=== PATIENT | male | born 1990 | race Caucasian/White ===

== ENCOUNTER 2020-01-24 16:59 | Emergency (ER) | payer OTHER, SELFPAY ==
[2020-01-24] VITALS (15 sets, daily range): BP systolic 113–137; BP diastolic 60–79; PULSE 47–61; RESP 10–20; TEMP 36.6; O2SAT 99–100
[2020-01-24] MEDS: fentaNYL 100 MCG/2 ML VIAL ×3 (17:12→19:07)
--- NOTE | 2020-01-24 17:30 | DI.RAD_ITS ---
EXAM: XR PORTABLE CHEST AP POST LINE CLINICAL HISTORY: right lateral chest tube placed TECHNIQUE: COMPARISON: No exams were available for comparison FINDINGS: Portable AP supine chest 1740 hours. Right thoracotomy tube noted in position. Severe spinal midtho racic fracture noted as seen on CT, please note findings at CT. Small residual right pneumothorax se en by plain film was significantly larger on CT. Widening of posterior mediastinum noted associated with the thoracic spine injury. IMPRESSION: RADIATION DOSE DELIVERED: Total DLP
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
[2020-01-24 17:48] LABS: Abs Immature Grans 0.09 10^3/uL (0.0-0.06); Absolute Basophil Count 0.04 10^3/uL (0.0-0.2); Absolute Eosinophil Count 0.07 10^3/uL (0.0-0.7); Absolute Lymphocyte Count 3.11 10^3/uL (1.2-3.4); Absolute Monocyte Count 0.51 10^3/uL (0.1-0.8); Absolute Neutrophil Count 7.29 10^3/uL (1.2-6.7); Basophils % 0.4; Eosinophils % 0.6; HCT 43.7 % (40.0-50.0); HGB 14.7 g/dL (13.5-17.5); Immature Grans % 0.8; MCH 30.4 pg (27.0-33.0); MCHC 33.6 % (32.0-36.0); MCV 90.5 fL (80-95); MPV 9.6 fL (8.0-11.0); Monocytes % 4.6; Neutrophils % 65.6; Nucleated RBC 0 %; Platelet Count 213 10^3/uL (130-400); RBC 4.83 10^6/uL (4.36-5.78); RDW 12.2 % (11.8-14.1); RDW-SD 40.5 fL; WBC 11.12 10^3/uL (4.4-10.8)
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
[2020-01-24] MEDS: MORPHine 10 MG/ML VIAL (17:54)
[2020-01-24 17:59] LABS: INR 1.1 (0.9-1.1); PTT Activated 23.6 sec (21.0-31.4); Prothrombin Time 10.6 sec (9.3-11.0)
[2020-01-24 18:03] LABS: ALT 45 U/L (16-63); AST 38 U/L (15-37); Alkaline Phosphatase 52 U/L (46-116); Anion Gap 11.2 mmol/L (3-11); BUN 17 mg/dL (7-18); Bilirubin, Total 0.3 mg/dL (0.2-1.0); CO2 25.8 mmol/L (21.0-32.0); CREATININE 1.09 mg/dL (0.70-1.30); Calcium 8.8 mg/dL (8.5-10.1); Chloride 100 mmol/L (98-107); Glucose 110 mg/dL (74-106); Lipase 47 U/L (73-393); Potassium 3.4 mmol/L (3.5-5.1); Sodium 137 mmol/L (136-145); Total Protein 6.9 g/dL (6.4-8.2)
--- NOTE | 2020-01-24 18:12 | DI.CT_ITS ---
EXAM: CT CHEST/ABD/PEL W CLINICAL HISTORY: trauma TECHNIQUE: COMPARISON: CT CT THORACIC LUMBAR SPINE WO from 01/24/2020 FINDINGS: CT examination of the chest, abdomen, and pelvis was performed with bolus infusion of 100 cc Omnipaqu e 350. There is a right thoracotomy tube in position, moderate-sized persistent right pneumothorax/hemothora x noted. No left pneumothorax. Possible posterior right pulmonary contusion. Small left pleural effus ion. Apparent foreign body in upper esophagus, 1 millimeter x 2 cm in diameter. There is a paraspinous hem atoma extending from T2 through T12. No gross vascular lesion of the chest. There is a severe burst fracture of T8. There is marked anterior over riding of T7 with respect to T8 and posterior displacement of T8 vertebral body with severe narrowing of the spinal canal at this le andrew. There are posterior element fractures of T 7 and T9 as well as T8. Transverse process fractures noted involving T 6 and T9. Right 6th rib fracture and left 8th and 9th rib fracture noted. Posterior spinous process fractures noted of T5-T6 T7 and T8. No evidence of hepatic splenic or pancreatic injury. No evidence of renal or adrenal injury or urinar y tract obstruction. No evidence of bowel injury. No vascular injury identified in the abdomen. Cheryl l diameter of the aorta. No significant abdominal wall hernia or hematoma. No fracture seen involving the lumbar spine pelvis or hips. IMPRESSION: Severe thoracic spine injury with markedly displaced burst fracture of T8 and marked deformity of the spinal canal as described above. Right pneumothorax/hemothorax with thoracotomy tube in position. RADIATION DOSE DELIVERED: Total DLP
[2020-01-24] MEDS: Omnipaque 350 MG/ML 100 ML BTL IJ (18:13)
[2020-01-24] MEDS: Normal Saline Flush 10 ML SYR IVP (18:14)
[2020-01-24] MEDS: Normal Saline - Diluent 50 ML VIAL IV (18:14)
[2020-01-24 18:15] LABS: ETHANOL BLOOD < 3.0 mg/dL (<3)
[2020-01-24] MEDS: MORPHine 10 MG/ML VIAL 4 MG IVP (18:25)
--- NOTE | 2020-01-24 18:28 | DI.VRAD_ITS ---
Addendum created by Kita Mendoza MD on 01/24/2020 6:30:26 PM EDT: T8 compression fracture noted. See separate CT report. Trace residual apparent anterior pneumothorax noted on the right best appreciated on CT assessment. Initial report created on 01/24/2020 6:28:07 PM EDT: PROCEDURE INFORMATION: Exam: XR Chest, 1 View Exam date and time: 01/24/2020 5:39 PM Age: 29 years old Clinical indication: Device placement; Chest tube TECHNIQUE: Imaging protocol: XR of the chest Views: 1 view. Other technique: Portable exam. COMPARISON: No relevant prior studies available. FINDINGS: Tubes, catheters and devices: Right-sided chest tube in place. Lungs: The lung apices are not completely included on this exam. As shown there is no evidence for pneumothorax. No focal infiltrates. Pleural space: See Lungs finding. Heart/Mediastinum: Unremarkable. No cardiomegaly. Bones/joints: There appear to be 1 or 2 right-sided rib fractures. IMPRESSION: No definite pneumothorax status post chest tube placement. Dictated and Authenticated by: Kita Mendoza MD. Ordering:BRYAN Gtz MD
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
[2020-01-24 18:38] LABS: Bilirubin Negative (Negative); Blood Small (Negative); Clarity Clear (Clear); Glucose Negative (Negative); Ketones Negative (Negative); Leukocyte Esterase Negative (Negative); Nitrite Negative (Negative); Urobilinogen 0.2 EU/dL (Up TO 0.2)
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
--- NOTE | 2020-01-24 18:46 | DI.VRAD_ITS ---
Addendum created by Kita Mendoza MD on 01/24/2020 7:01:11 PM EDT: I discussed case findings with Dr. Haro 01/24/2020 7:00 PM EST. Initial report created on 01/24/2020 6:46:26 PM EDT: PROCEDURE INFORMATION: Exam: CT Chest With Contrast Exam date and time: 01/24/2020 6:00 PM Age: 29 years old Clinical indication: Other: Trauma TECHNIQUE: Imaging protocol: Computed tomography of the chest with intravenous contrast. Radiation optimization: All CT scans at this facility use at least one of these dose optimization techniques: automated exposure control; mA and/or kV adjustment per patient size (includes targeted exams where dose is matched to clinical indication); or iterative reconstruction. Contrast material: OMNIPAQUE 350; Contrast route: INTRAVENOUS (IV); COMPARISON: No relevant prior studies available. FINDINGS: Tubes, catheters and devices: There is a right-sided chest tube in place. Lungs: Unremarkable. No consolidation. No masses. Pleural space: There is a small residual right anterior pneumothorax, less than 20%. There are small bilateral pleural effusions, right larger than left. Density suggests hemothorax. Heart: Unremarkable. No cardiomegaly. No pericardial effusion. Mediastinal space: There appears to be a foreign body in the upper esophagus best appreciated on coronal series 8, image 42. It it measures nearly 2 cm in length, approximately 1 mm in diameter. There is a large paraspinous hematoma extending from the T2 level through the T12 level. Aorta: Unremarkable. No aortic aneurysm. Lymph nodes: Unremarkable. No enlarged lymph nodes. Bones/joints: There is a fracture dislocation of T8. There is fairly significant posterior displacement of the vertebral body with significant impaction. There is retropulsion and high-grade spinal stenosis. There are spinous process fractures involving C6, T5, T6, T7 and T8. There are transverse process fractures of T6 on the right with comminution and probably involving the left as well, nondisplaced. There is T7, T8 and T9 involvement. There is disruption of the posterior elements quite diffusely at the T8 level with bilateral facet involvement at T7. There is a fracture of the right 6th rib and left 8th and 9th ribs posteriorly. Soft tissues: There is a small amount of subcutaneous emphysema in the right chest wall. IMPRESSION: 1. Complex fracture dislocation at T8 with retropulsion and severe spinal stenosis. Adjacent rib and posterior element involvement as noted above including multiple levels. There is a large paraspinous hematoma along the length of the thoracic spine. 2. Small residual right pneumothorax after chest tube placement. Small associated right hemothorax. 3. Radiopaque foreign body seen at the upper thoracic esophagus, uncertain etiology. This could represent a catheter fragment. PROCEDURE INFORMATION: Exam: CT Abdomen And Pelvis With Contrast Exam date and time: 01/24/2020 6:00 PM Age: 29 years old Clinical indication: Other: Trauma TECHNIQUE: Imaging protocol: Computed tomography of the abdomen and pelvis with intravenous contrast. Radiation optimization: All CT scans at this facility use at least one of these dose optimization techniques: automated exposure control; mA and/or kV adjustment per patient size (includes targeted exams where dose is matched to clinical indication); or iterative reconstruction. Contrast material: OMNIPAQUE 350; Contrast volume: 100 ml; Contrast route: INTRAVENOUS (IV); COMPARISON: No relevant prior studies available. FINDINGS: Liver: Normal. No mass. Gallbladder and bile ducts: Normal. No calcified stones. No ductal dilation. Pancreas: Normal. No ductal dilation. Spleen: Normal. No splenomegaly. Adrenals: Normal. No mass. Kidneys and ureters: Normal. No hydronephrosis. Stomach and bowel: Unremarkable. No obstruction. No mucosal thickening. Appendix: No evidence of appendicitis. Intraperitoneal space: Unremarkable. No free air. No significant fluid collection. Vasculature: Unremarkable. No abdominal aortic aneurysm. Lymph nodes: Unremarkable. No enlarged lymph nodes. Bladder: Unremarkable as visualized. Reproductive: Unremarkable as visualized. Bones/joints: Residual lower thoracic paraspinous hematoma noted. Soft tissues: Unremarkable. IMPRESSION: No significant, acute abdomen or pelvis abnormality evident. Dictated and Authenticated by: Kita Mendoza MD. Ordering:BRYAN Gtz MD
[2020-01-24 18:48] LABS: *AMPHETAMINES SCREEN URINE POSITIVE (Negative); *BARBITURATES SCREEN URINE Negative (Negative); *BENZODIAZEPINES SCREEN URINE Negative (Negative); Cannabinoids THC POSITIVE (Negative); Cocaine Screen,Urine Negative (Negative); METHADONE URINE SCREEN Negative (Negative); OPIATES URINE SCREEN POSITIVE (Negative)
[2020-01-24 18:49] LABS: Epithelial Cells Negative HPF (Negative); WBC Negative HPF (0-5)
[2020-01-24 18:50] LABS: Bacteria Negative HPF (Negative); C & S Indicated? No; Crystals Few Amorphous HPF (Negative); Mucus Moderate (Negative)
[2020-01-24 18:51] LABS: Tricyclic Antidepressants Negative (Negative)
[2020-01-24] MEDS: HYDROmorphone 2 MG/ML VIAL 1 MG IVP ×2 (19:08→19:09)
[2020-01-24] MEDS: Lactated Ringers 2,000 ML 1000 ML IV (19:10)
--- NOTE | 2020-01-24 19:32 | DI.VRAD_ITS ---
PROCEDURE INFORMATION: Exam: CT Thoracic Spine Without Contrast Exam date and time: 01/24/2020 6:00 PM Age: 29 years old Clinical indication: Other: Trauma TECHNIQUE: Imaging protocol: Computed tomography images of the thoracic spine without contrast. Radiation optimization: All CT scans at this facility use at least one of these dose optimization techniques: automated exposure control; mA and/or kV adjustment per patient size (includes targeted exams where dose is matched to clinical indication); or iterative reconstruction. COMPARISON: No relevant prior studies available. FINDINGS: Tubes, catheters and devices: Right-sided chest tube noted. Vertebrae: There is a fracture dislocation at the T8 level. There are loose fragments of the vertebral body seen at the anterior level. Greater than 70% of the vertebral body has been displaced posteriorly. The spinal canal is extremely diminutive with significant thoracic compression. There is marked focal kyphosis at this level. There are spinous process fractures of C6, T5, T6, T7 and T8. There are facet fractures bilaterally at the T7 and T8 levels. There are transverse process fractures bilaterally at T7, T8 and T9 and likely bilateral at T6. There are bilateral laminal fractures at T7 and T8. Discs/Spinal canal/Neural foramina: See Vertebrae finding. Soft tissues: There is extensive paraspinous hematoma extending effectively the length of the thoracic spine. Esophagus: Apparent radiopaque foreign body again noted in the upper esophagus, possible ingested material. Pleural space: There are small bilateral pleural effusions. Small right pneumothorax. IMPRESSION: Fracture dislocation at T8 with kyphosis and high-grade stenosis and thoracic spinal canal compression. Posterior element fractures as noted above. PROCEDURE INFORMATION: Exam: CT Lumbar Spine Without Contrast Exam date and time: 01/24/2020 6:00 PM Age: 29 years old Clinical indication: Other: Trauma TECHNIQUE: Imaging protocol: Computed tomography images of the lumbar spine without contrast. Radiation optimization: All CT scans at this facility use at least one of these dose optimization techniques: automated exposure control; mA and/or kV adjustment per patient size (includes targeted exams where dose is matched to clinical indication); or iterative reconstruction. COMPARISON: No relevant prior studies available. FINDINGS: Vertebrae: No acute fracture. Normal alignment. Discs/Spinal canal/Neural foramina: No significant disc protrusion. No severe spinal canal stenosis. No significant neural foraminal narrowing. Soft tissues: Unremarkable. IMPRESSION: No evidence for acute posttraumatic lumbar spine abnormality. Dr. Haro aware of findings 01/24/2020 7:31 PM EST. Dictated and Authenticated by: Kita Mendoza MD. Ordering:BRYAN Gtz MD
== END 2020-01-24 19:50 | disposition short-term general hospital (02) ==
PROVIDERS: Emergency Provider Emergency Medicine
DX: S22.062A Unstable burst fracture of T7-T8 vertebra, initial encounter for closed fracture (principal); S24.133A Anterior cord syndrome at T7-T10 level of thoracic spinal cord, initial encounter; S12.390A Other displaced fracture of fourth cervical vertebra, initial encounter for closed fracture; S12.490A Other displaced fracture of fifth cervical vertebra, initial encounter for closed fracture; S12.590A Other displaced fracture of sixth cervical vertebra, initial encounter for closed fracture; S27.2XXA Traumatic hemopneumothorax, initial encounter; S22.31XA Fracture of one rib, right side, initial encounter for closed fracture; S22.42XA Multiple fractures of ribs, left side, initial encounter for closed fracture; M48.02 Spinal stenosis, cervical region; R29.5 Transient paralysis; V18.0XXA Pedal cycle driver injured in noncollision transport accident in nontraffic accident, initial encounter; Y93.55 Activity, bike riding
CPT/HCPCS: 32551; 36415; 51702; 71045; 74177; 80053; 80307; 83690; 86850; 86900; 86901; 96361; 96374; 96375; 96376; 99252; 99291; 99292; 70450; 71260; 72125; 72128; 72131; 80320; 81003; 81015; 85025; 85610; 85730; J2270; J3010; J3490